=== PATIENT | male | born 1970 | race Caucasian/White ===

== ENCOUNTER 2022-09-24 22:23 | Emergency (ER) | payer OTHER, SELFPAY ==
[2022-09-24 22:29] VITALS: BP 179/99; PULSE 84; RESP 18; TEMP 36.5; O2SAT 98
--- NOTE | 2022-09-25 00:17 | ED.EXTPRO ---
HPI - Extremity Problem General Chief complaint: Extremity Problem,Nontraumatic Stated complaint: left leg swelling distal to knee Time Seen by Provider: 09/25/22 00:16 Source: patient Mode of arrival: ambulatory Limitations: no limitations History of Present Illness HPI Narrative: Patient is a 51-year-old male presenting to the emergency department for evaluation of left lower extremity swelling and calf tightness. Patient reports symptoms have been ongoing over the past 3 weeks. Patient with recent long car trip to [place], [place], greater than a 14-hour drive. Patient states that he is active, would get out and stretch his legs. No history of coagulopathy, DVT or PE in the past. No use of anticoagulation. He reports chronic left lower extremity leg tightness and swelling without redness, rash, bruising, lesion. He denies any chest pain, shortness of breath, pleuritic pain, palpitations, cough or hemoptysis. Related Data Allergies Allergy/AdvReac Type Severity Reaction Status Date / Time No Known Drug Allergies Allergy Unknown Unknown Verified 09/24/22 22:24 Review of Systems Review of Systems: CONSTITUTIONAL: Denies fever, chills, or sweats. EYES: Denies visual changes, redness, or discharge. ENT: Denies rhinorrhea, congestion, sore throat, or otalgia. CARDIOVASCULAR: Denies chest pain, palpitations, reports left leg edema RESPIRATORY: Denies cough or dyspnea. GASTROINTESTINAL: Denies abdominal pain, nausea, vomiting, or diarrhea. GENITOURINARY: Denies dysuria or hematuria. SKIN: Denies rash or itching. MUSCULOSKELETAL: Denies back pain, joint pain, or myalgia. NEUROLOGIC: Denies headache, numbness, or weakness. [facility] Family History Family History Mother Heart disease Father Cerebrovascular accident, Onset Age: 61 Social History Social History Smoking status: Never smoker Alcohol intake: current Lack of Transportation: YES Lack of Food: Never True Current Housing: I Have Housing Concerned About Future Housing: No Difficulty Paying Gas/Electric Bills: No Difficulty Paying for Meds: No Currently Unemployed: No Education: Bachelor's Degree Difficulty w/ Childcare or Family Care: No Exam Narrative: GENERAL: Awake, alert, conversant HEAD: Normocephalic, atraumatic. EYES: PERRLA and EOMI. ENT: Nares clear, no rhinorrhea or epistaxis. Mucous membranes moist. NECK: Supple. CHEST: No respiratory distress, breathing even and non labored HEART: Regular rate, sinus rhythm ABDOMEN: Obese, protuberant, non tender EXTREMITIES: Normal range of motion. Left lower extremity edema compared to the right, mild tenderness but compartments are overall soft. There is no erythema, induration, blistering, vesicles, lesion. Extremities are warm and well-perfused, capillary refill is normal. Intact distal sensation, normal strength bilaterally. SKIN: Warm, dry, no rash. NEURO:No focal deficits. Alert and oriented x3 Course Vital Signs Vital signs: Vital Signs Temperature 36.5 C 09/24/22 22:29 Pulse Rate 84 09/24/22 22:29 Respiratory Rate 18 09/24/22 22:29 Blood Pressure 179/99 H 09/24/22 22:29 Pulse Oximetry 98 09/24/22 22:29 Oxygen Delivery Room Air 09/24/22 22:29 Temperature 36.5 C 09/24/22 22:29 Pulse Rate 84 09/24/22 22:29 Respiratory Rate 18 09/24/22 22:29 Blood Pressure 179/99 H 09/24/22 22:29 Pulse Oximetry 98 09/24/22 22:29 Oxygen Delivery Room Air 09/24/22 22:29 MDM - Extremity (Nontraumatic) MDM Narrative Medical decision making narrative: Patient without leukocytosis, no electrolyte derangement. Mildly elevated D-dimer, thus after shared decision-making occurred, did do first dose of Eliquis here in the emergency department tonight. Patient is not a good candidate for Lovenox given his BMI, weight in kilograms.
[2022-09-25 00:51] LABS: Basophils Absolute Auto 0.1 K/mm3 (0.0-0.1); Basophils Percent Auto 1.1 % (0.2-1.2); Eosinophils Absolute Auto 0.2 K/mm3 (0-0.3); Eosinophils Percent Auto 3.6 % (0-4.4); Hemoglobin 14.3 g/dL (14.0-18.0); Immature Granulocyte Absolute 0.02 K/mm3 (0.00-0.031); Immature Granulocyte Percent A 0.3 % (0-0.5); Lymphocytes Absolute Auto 1.75 K/mm3 (0.9-3.2); Lymphocytes Percent Auto 26.6 % (18.3-44.2); Mean Corpuscular HGB Conc 31.8 g/dl (32-36); Mean Corpuscular Hemoglobin 27.5 pg (26-34); Mean Corpuscular Volume 86.5 fl (80-100); Mean Platelet Volume 9.7 fl (7.4-10.4); Monocytes Absolute Auto 0.5 K/mm3 (0.1-0.6); Monocytes Percent Auto 7.3 % (2.6-8.5); Neutrophils Percent Auto 61.1 % (45.5-73.1); Platelet Count Result 241 k/mm3 (150-375); Red Cell Distribution Width 15.1 % (11.5-14.5); White Blood Count 6.6 K/mm3 (4.5-10.0)
[2022-09-25 00:55] VITALS: BP 130/87; PULSE 87; RESP 19; O2SAT 97
[2022-09-25 01:01] LABS: Anion Gap 5 mmol/L (8-16); Blood Urea Nitrogen 20 mg/dL (9-20); Calcium 8.5 mg/dL (8.4-10.2); Carbon Dioxide 31 mmol/L (22-30); Chloride 104 mmol/L (98-107); Estimated CRCL calculation 137 ml/min; Estimated Glomerular Filt Rate > 60; Glucose 112 mg/dL (65-110); Potassium 3.8 mmol/L (3.4-5.0); Sodium 140 mmol/L (137-145)
[2022-09-25 01:02] LABS: Prothrombin Time 13.3 Seconds (11.1-14.7)
[2022-09-25 01:03] LABS: Partial Thromboplastin Time 31.2 SECONDS (22.3-36.8)
[2022-09-25 01:08] LABS: D Dimer 0.52 ug/mL (<0.48)
[2022-09-25] MEDS: APIXABAN 5 MG TABLET PO (01:38)
== END 2022-09-25 01:30 | disposition home or self-care (01) ==
PROVIDERS: Emergency Provider Emergency Medicine; PCP Internal Medicine
DX: R60.0 Localized edema (principal)
CPT/HCPCS: 36415; 80048; 85025; 85380; 85610; 85730; 93971; 99283; A9270

== ENCOUNTER 2022-09-25 07:15 | Outpatient (CLI) | payer OTHER, SELFPAY ==
--- NOTE | ~2022-09-25 | US_ITS ---
EXAMINATION: US venous doppler [facility] DATE: 09/25/2022 07:52 INDICATION: Left lower limb edema. TECHNIQUE: Grayscale ultrasound images without and with compression and Doppler ultrasound images of the left lower extremity veins were obtained. COMPARISON: None. FINDINGS: The visualized portions of left common femoral vein, profunda (deep) femoral vein, femoral vein, popl iteal vein, peroneal veins, posterior tibial veins, and greater saphenous vein outflow are patent. IMPRESSION: 1. No deep venous thrombosis. Reviewed, dictated and finalized at location A.
== END 2022-09-25 07:16 | disposition home or self-care (01) ==
PROVIDERS: PCP Internal Medicine; Visit Provider Emergency Medicine
DX: R60.0 Localized edema (principal)
CPT/HCPCS: 93971

== ENCOUNTER 2023-06-11 15:36 | Outpatient (CLI) | payer OTHER, SELFPAY ==
--- NOTE | ~2023-06-11 | CT_ITS ---
EXAMINATION: CT sinus wo con DATE: 06/11/2023 15:51 INDICATION: Chronic sinusitis, unspecified. TECHNIQUE: Computed tomography (CT) of the paranasal sinuses was performed without intravenous contra st. Iterative reconstruction technique was employed. The dose-length product was 311.14 mGy-cm. COMPARISON: CT sinuses 05/23/16 FINDINGS: There is mucosal thickening in the frontal sinuses with occlusion of the frontal recesses. There is extensive mucosal thickening in the ethmoid sinuses. There is mild mucosal thickening in the sphenoid and maxillary sinuses. There is mild rightward deviation of superior nasal septum and mild leftward deviation of inferior nasal septum. There are changes of uncinectomies. The ostiomeatal unit s are widely patent. IMPRESSION: 1. Mucosal thickening in the paranasal sinuses. Reviewed, dictated and finalized at location E. CLEANER
== END 2023-06-11 15:37 | disposition home or self-care (01) ==
LOC: ANHIMG 15:39
PROVIDERS: PCP Internal Medicine; Visit Provider Otolaryngology
DX: J32.9 Chronic sinusitis, unspecified (principal); J34.2 Deviated nasal septum; J34.3 Hypertrophy of nasal turbinates; R09.81 Nasal congestion
CPT/HCPCS: 70486

== ENCOUNTER 2023-08-05 01:52 | Day surgery (SDC) | payer OTHER, SELFPAY ==
[2023-07-28 13:05] VITALS: BMI 50.8
--- NOTE | 2023-07-28 13:10 | PC.NURSE ---
Report to the Outpatient Waiting Room, entrance under the green pavilion located off [facility], at time 0645 on date 08/05/23. Planned Procedure Time: 0845. Time changes happen often and if your time is changed the preop area will call you the afternoon before. - You and your visitor will be asked to self-screen and do not enter if you have any COVID symptoms. - A mask is optional within the hospital at this time. Patients may have clear liquids (water, carbonated beverages, clear teas, apple juice) until 3 hours prior to surgery with a maximum of 20 ounces. - No food from midnight until time of surgery Take the following medications with a SIP of water the morning of surgery: NONE DO NOT STOP ANY OF YOUR OTHER PRESCRIPTION MEDICATIONS PRIOR TO SURGERY ?EXCEPT THE FOLLOWING Medications to discontinue per physician: N/A Date to take last dose: N/A Please no make-up, nail irish, hairspray, perfume, deodorant, or body powder the day of surgery. No jewelry (including any body piercings) or valuables the day of surgery, leave them at home. Please take a shower or bath the night before, or the morning of, surgery with an antibacterial soap. Wear comfortable, loose fitting clothing. Children are encouraged to wear pajamas. - Jewelry must be removed prior to entering the operating room. Rings and piercings that are not removed may be cut off. - The hospital will not accept responsibility for valuables. - Please leave all valuables, including medications, at home the day of surgery. If you are going home after surgery, a licensed customer service driver must drive you home. - NO public transportation without another adult if you receive anesthesia. - We recommend that an adult stay with you for 24 hours following discharge. - We also recommend that you do not drive, make important decision, drink alcoholic beverages, or take any drugs that were not prescribed by your health care provider for at least 24 hours after your discharge time. Follow any additional instructions given to you from your surgeon. If you or anyone in your household have experienced Covid symptoms in the past week, please notify your surgeon or the nurse liaison at the phone number below for possible testing. Telephone instructions given to EMERSON GLASER and asked if any additional questions and then verbalized understanding. Patient advised to call surgeon office or pre surgery nurse liaison [phone] if any additional questions.
--- NOTE | 2023-08-04 15:23 | PM.IMHP ---
H&P: HPI History of Present Illness Date/Time: 08/04/23 15:23 Chief Complaint: chronic sinusitis nasal obstruction nasal congestion septal deviation turbinate hypertrophy Narrative: planned procedure [facility] Family History Family History Mother Heart disease Father Cerebrovascular accident, Onset Age: 61 Social History Social History Social History: Caffeine-energy drinks occasionally Smoking status: Never smoker Alcohol intake: current Alcohol use details: 2/MONTH Substance use: never Substance use type: does not use Lack of Transportation: YES Lack of Food: Never True Current Housing: I Have Housing Concerned About Future Housing: No Difficulty Paying Gas/Electric Bills: No Difficulty Paying for Meds: No Currently Unemployed: No Education: Bachelor's Degree Difficulty w/ Childcare or Family Care: No Living arrangements: with family Spiritual care concerns: No Meds Home Medications and Allergies Home Medications Medication Instructions Recorded Confirmed Type multivitamin 1 tablet PO DAILY 01/13/23 07/28/23 History azelastine 137 mcg (0.1 %) nasal 1 - 2 spray intranasal Q12H #30 mL 05/01/23 07/28/23 Rx spray aerosol fluticasone propionate 50 2 - 3 spray intranasal BID #48 mL 05/02/23 07/28/23 Rx mcg/actuation nasal spray,suspension (Flonase Allergy Relief) prednisone 10 mg tablet 10 mg PO .daily #5 tabs 07/30/23 07/30/23 Rx Allergies Allergy/AdvReac Type Severity Reaction Status Date / Time Penicillins AdvReac Vomiting Verified 07/28/23 13:04 Exam Narrative: Septal deviation back turbinates chronic appearing sinuses Assessment and Plan Assessment and plan (1) Nasal turbinate hypertrophy: Code(s): J34.3 - Hypertrophy of nasal turbinates Status: Acute Assessment and Plan: OR bilateral image guided endoscopic septoplasty turbinate reduction maxillary antrostomies total ethmoidectomies sphenoidotomies frontal sinusotomies . Risks discussed bleeding infection damage to surrounding structures need further procedures septal perforation failure to resolve symptoms. Need for prolonged follow-up high risk for narcotic use. Time off work time off school. Postoperative bleeding. Failure to resolve symptoms. CSF leak brain brain damage change in vision total blindness. Damage any structures the clavicle by myself damage to any structure in the induction and maintenance of anesthesia. (2) Nasal septal deviation: Code(s): J34.2 - Deviated nasal septum Status: Acute (3) Chronic sinusitis: Code(s): J32.9 - Chronic sinusitis, unspecified Status: Acute
[2023-08-05] VITALS (13 sets, daily range): BP systolic 128–155; BP diastolic 74–97; PULSE 74–99; RESP 16–25; TEMP 36.2–36.8; O2SAT 94–99; BMI 51.0
--- NOTE | 2023-08-05 07:15 | WPDHPUPDATE1 ---
History and Physical Update Update Date/Time: 08/05/23 07:15 History and Physical has been reviewed, including an updated exam of the patient. There are NO changes in the patient's condition. Risks, benefits, and alternatives have been discussed and questions answered. Patient agrees to proceed with procedure.
[2023-08-05] MEDS: ACETAMINOPHEN 500 MG TABLET 1000 MG PO (07:33)
--- NOTE | 2023-08-05 08:01 | P.PNAN_ITS ---
Anes - Initial Pre Proc Eval Procedure: Operation Date: 08/05/23 08:45 Proposed Procedures p Endoscopic Septoplasty, - Henry Mario MD s Image Guided Bilateral Inferior Turbinate Reduction with Outfracture, Bilateral Maxillary Antrostomy, Bilateral Total Ethmoidectomy, Bilateral Sphenoidotomy, Bilateral Frontal Sinusotomy - Henry Mario MD Date/Time: 08/05/23 08:01 Surgeon: Henry Mario MD Pre Op Diagnosis: chronic sinusitis,septal deviation Patient Data Age: 52 Gender: M Height: 1.83 m Weight: 170.6 kg Last Vital Signs Temp 36.8 C 08/05/23 07:40 Pulse 80 08/05/23 07:40 Resp 20 08/05/23 07:40 BP 153/97 H 08/05/23 07:40 Pulse Ox 97 08/05/23 07:40 O2 Del Method Room Air 08/05/23 07:40 Allergies Allergy/AdvReac Type Severity Reaction Status Date / Time Penicillins AdvReac Vomiting Verified 08/05/23 07:46 Home Medications Medication Instructions Recorded Confirmed Type multivitamin 1 tablet PO DAILY 01/13/23 08/05/23 History azelastine 137 mcg (0.1 %) nasal 1 - 2 spray intranasal Q12H #30 mL 05/01/23 07/28/23 Rx spray aerosol fluticasone propionate 50 2 - 3 spray intranasal BID #48 mL 05/02/23 07/28/23 Rx mcg/actuation nasal spray,suspension (Flonase Allergy Relief) Patient hx anesthesia problems: none Family hx anesthesia problems: none Results Review: All pre-operative results and documents have been reviewed as part of the pre- operative evaluation. [facility] Family History Family History Mother Heart disease Father Cerebrovascular accident, Onset Age: 61 Social History Social History Social History: Caffeine-energy drinks occasionally Smoking status: Never smoker Alcohol intake: current Alcohol use details: 2/MONTH Substance use: never Substance use type: does not use Lack of Transportation: YES Lack of Food: Never True Current Housing: I Have Housing Concerned About Future Housing: No Difficulty Paying Gas/Electric Bills: No Difficulty Paying for Meds: No Currently Unemployed: No Education: Bachelor's Degree Difficulty w/ Childcare or Family Care: No Living arrangements: with family Spiritual care concerns: No Anes - Eval Final PreProcedure Day of Procedure 08/05/23 08:01 Patient weight: super morbidly obese Heart: regular rate and rhythm Lungs: decreased breath sounds Airway: Mallampati scale class II Neurological: alert and oriented Last oral intake: >/= 8 hours ASA classification: III Emergent: no Anesthetic plan: proceed Anesthesia type and monitoring: general ETT and standard monitoring Results Review: All pre-operative results and documents have been reviewed as part of the pre- operative evaluation. Informed Consent: The patient's anesthetic plan and its attendant risks and benefits were discussed with the patient/family/POA. Questions were solicited and answers provided to the satisfaction of the patient/family/POA.
[2023-08-05] MEDS: LACTATED RINGERS 1,000 ML 30 ML IV CONT ×2 (08:34→13:30)
[2023-08-05] MEDS: ceFAZolin 3 GM/D5W 100 ML 100 ML IVPB (08:36)
[2023-08-05] MEDS: OXYMETAZOLINE HCL 0.05% NAS 15 ML BTL (*BKC) 1 SPRAY NASAL (09:01)
[2023-08-05] MEDS: LIDO 1%/EPINEPHRINE 1:100,000 20 ML VIAL 10 ML INFILTRATE (09:06)
[2023-08-05] MEDS: MUPIROCIN 2% OINT 22 GM TUBE 1 APPLIC EACH NARE (09:07)
[2023-08-05] MEDS: ceFAZolin SODIUM 1 GM VIAL IV PUSH (12:31)
--- NOTE | 2023-08-05 13:48 | W.PM.PROC2 ---
Procedure Note - Detailed Date of Procedure 08/05/23 Pre-op Diagnosis chronic sinusitis,septal deviationNasal polyps, turbinate hypertrophy Post-op Diagnosis Same Procedure Performed bilateral image guided endoscopic maxillary antrostomies total ethmoidectomies sphenoidotomies frontal sinusotomies with drill out. Propel stent placement. Bilateral middle turbinectomies. Endoscopic assisted septoplasty. Surgeon Henry Mario MD Anesthesia General Indications See above Findings rightward deviated septum blocking the frontal with down low it is deviated as well. History of previous septoplasty. Edematous polyps both middle turbinates scarring over laterally frontal outflows ethmoid cavities full of polyps. Sphenoids full of polyps. Max is were incomplete. Turbinates were big patient bled throughout the case probably 200 cc compared to in 100 cc for a full house test which. Epi the patient did well left frontal open nicely propel stent placed right-sided was had complete in terms of frontal sinusotomy draft 1 but he could used draft 2 were tube being out just unable because of constant oozing. Description of Procedure Patient identified consent verified preop. Patient brought to the operating. Time-out performed. General anesthesia induced endotracheal tube secured. Patient prepped draped position procedure confirmed 2nd time-out performed. Image guidance initiated firm. I suppose lysed Kyrgyz then removed. 0 degree scope utilized right septal deviation total 15 cc 1% lidocaine 1 100,000 parts epinephrine checked bilateral nasal septum inferior turbinates. [place] incision made left nasal septal flap elevated no tears right nasal septal flap elevated no tears previous he says it scarred down from previous septoplasty. Deviated septum removed Ernst Sevillaton forceps Nain forceps osteotome. FloSeal placed along any bleeding areas in the flaps this stopped any bleeding. Piotr incision closed interrupted 5 0 fast gut sutures. Turbinates inferior stab incision made anteriorly debrided with a Personal Estate Manager microdebrider 2.5 blade outfractured with [place] FloSeal placed in the stab incision no bleeding. Maxillary antrostomies performed with image guidance straight through cut double ball probe backbiter and microdebrider. Total ethmoidectomy performed with [place] up-biting through cut straight through cut image guidance and microdebrider. Sphenoidotomy performed with [place] Kerrison sphenoid punch and microdebrider. Frontal sinusotomies performed with image guidance frontal sinus instruments and a 70 degree high-speed drill on the left side and the right side a little bit. I was unable to completely open the floor the right side that being said it was open. Because of the constant oozing. Propel stents placed bilaterally. Franks splints placed was were copiously irrigated with sterile in a sterile normal saline. Gelfoam placed in the bilateral middle meati I to catch any bleeding. Franks splints sutured anteriorly with 3-0 mattress nylon suture. Patient tolerated the procedure well blood loss 200 cc. I performed all dictated portions of procedure no complications care the patient given Anesthesiology patient taken to PACU. All of note the middle turbinates were noted be completely full of polyps and scarred over laterally so local was injected in the base of these and they were resected stumps were cauterized with Bovie suction electrocautery setting of 10. Estimated Blood Loss 200 Drains No Packing Yes ( Nova pack) Pathology None sent Complications No immediate complications Condition Stable Disposition PACU [facility] Billing Surgery - Charge Forward: Surgery Billing
[2023-08-05] MEDS: ONDANSETRON INJ 4 MG/2 ML VIAL IV PUSH (15:03)
[2023-08-05] MEDS: oxyCODONE HCL (*CRX) 5 MG TAB IR PO (15:18)
--- NOTE | 2023-08-05 17:28 | SUR.PHASEII ---
Dr. Mario at bedside to speak to patient and his regarding questions and concerns.
== END 2023-08-05 17:50 | disposition home or self-care (01) ==
PROVIDERS: PCP Internal Medicine; Visit Provider Otolaryngology
PROC: (CPT 30520; principal; 2023-08-05 08:45)
PROC: (CPT 31256; 2023-08-05 08:45)
DX: J34.2 Deviated nasal septum (principal); J32.9 Chronic sinusitis, unspecified; J33.9 Nasal polyp, unspecified; J34.3 Hypertrophy of nasal turbinates; E66.01 Morbid (severe) obesity due to excess calories; Z68.43 Body mass index [BMI] 50.0-59.9, adult; Z82.49 Family history of ischemic heart disease and other diseases of the circulatory system
CPT/HCPCS: 31256; 31257; 31276; 61782; 30520; A9270; C2625; J0330; J0360; J0690; J1100; J2250; J2405; J2704; J3010; J7120

== ENCOUNTER 2023-10-02 12:36 | Outpatient (CLI) | payer OTHER, SELFPAY ==
--- NOTE | 2023-10-02 12:30 | ECG_ITS ---
[facility] [address] Test Date: 2023-10-02 Pat Name: Lorelei Perla Department: Room: Gender: M Extrusion Manager: : 1970 Requested By: Abhinav Lockhart Order Number: [id number] Karon MD: Daniel Blanchard D.O. Measurements Intervals [place] Rate: 82 P: 24 GA: 148 QRS: 24 QRSD: 101 T: 14 QT: 364 QTc: 426 Interpretive Statements SINUS RHYTHM CONSIDER INFERIOR INFARCT, AGE INDETERMINATE BASELINE ARTIFACT- I, II, III, AVR, AVL, AVF, V1-V6 ABNORMAL ECG No previous ECG available for comparison Electronically Signed On 10-02-2023 13:01:14 CDT by Daniel Blanchard D.O.
== END 2023-10-02 12:37 | disposition home or self-care (01) ==
LOC: ANHSURGERY 12:40
PROVIDERS: PCP Internal Medicine; Visit Provider Otolaryngology
DX: Z01.818 Encounter for other preprocedural examination (principal); I10 Essential (primary) hypertension; R94.31 Abnormal electrocardiogram [ECG] [EKG]
CPT/HCPCS: 93005

== ENCOUNTER 2023-10-10 01:29 | Day surgery (SDC) | payer OTHER, SELFPAY ==
[2023-10-01 09:36] VITALS: BMI 49.6
--- NOTE | 2023-10-01 09:41 | PC.NURSE ---
Report to the Outpatient Waiting Room, entrance under the green pavilion located off [facility], at time _1100_ on date _[id number]_. Planned Procedure Time: _1pm_. Time changes happen often and if your time is changed the preop area will call you the afternoon before. - You and your visitor will be asked to self-screen and do not enter if you have any COVID symptoms. - A mask is optional within the hospital at this time. Patients may have clear liquids (water, carbonated beverages, clear teas, apple juice) until 3 hours prior to surgery with a maximum of 20 ounces. - No food from midnight until time of surgery Take the following medications with a SIP of water the morning of surgery: ___Amlodipine and Metoprolol. Nebulizer if needed. DO NOT STOP ANY OF YOUR OTHER PRESCRIPTION MEDICATIONS PRIOR TO SURGERY ?EXCEPT THE FOLLOWING Medications to discontinue per physician Multivitamin Date to take last jwig___[id number] Please no make-up, nail icelandic, hairspray, perfume, deodorant, or body powder the day of surgery. No jewelry (including any body piercings) or valuables the day of surgery, leave them at home. Please take a shower or bath the night before, or the morning of, surgery with an antibacterial soap. Wear comfortable, loose fitting clothing. - Jewelry must be removed prior to entering the operating room. Rings and piercings that are not removed may be cut off. - The hospital will not accept responsibility for valuables. - Please leave all valuables, including medications, at home the day of surgery. If you are going home after surgery, a licensed truck driver salesperson must drive you home. - NO public transportation without another adult if you receive anesthesia. - We recommend that an adult stay with you for 24 hours following discharge. - We also recommend that you do not drive, make important decision, drink alcoholic beverages, or take any drugs that were not prescribed by your health care provider for at least 24 hours after your discharge time. Follow any additional instructions given to you from your surgeon. If you or anyone in your household have experienced Covid symptoms in the past week, please notify your surgeon or the nurse liaison at the phone number below for possible testing. Telephone instructions given to __Malie__and asked if any additional questions and then verbalized understanding. Patient advised to call surgeon office or pre surgery nurse liaison [phone] if any additional questions.
--- NOTE | 2023-10-09 17:10 | PM.IMHP ---
H&P: HPI History of Present Illness Date/Time: 10/09/23 17:10 Chief Complaint: right supraclavicular lipoma tonsillar hypertrophy snoring sleep apnea Narrative: planned procedure Review of Systems Review of Systems: All systems reviewed & are unremarkable except as noted in HPI and below PMFSH Family History Family History Mother Heart disease Father Cerebrovascular accident, Onset Age: 61 Social History Social History Social History: Caffeine-energy drinks occasionally Smoking status: Never smoker Alcohol intake: current Alcohol use details: 2/MONTH Substance use: never Substance use type: does not use Lack of Transportation: YES Lack of Food: Never True Current Housing: I Have Housing Concerned About Future Housing: No Difficulty Paying Gas/Electric Bills: No Difficulty Paying for Meds: No Currently Unemployed: No Education: Bachelor's Degree Difficulty w/ Childcare or Family Care: No Living arrangements: with family Spiritual care concerns: No Meds Home Medications and Allergies Home Medications Medication Instructions Recorded Confirmed Type multivitamin 1 tablet PO DAILY 01/13/23 10/01/23 History amlodipine 5 mg tablet 5 mg PO DAILY 08/11/23 10/01/23 History metoprolol succinate 50 mg 50 mg PO DAILY 08/28/23 10/01/23 History tablet,extended release 24 hr clindamycin HCl 300 mg capsule 300 mg PO Q8H #21 caps 09/26/23 10/01/23 Rx budesonide 0.25 mg/2 mL suspension 0.25 mg (2 mL) irrigation BID PRN 10/01/23 Rx for nebulization Dyspnea #360 mL Allergies Allergy/AdvReac Type Severity Reaction Status Date / Time Penicillins AdvReac Vomiting Verified 10/01/23 09:35 Exam Narrative: large tonsils right supraclavicular mass Assessment and Plan Assessment and plan (1) Lipoma: Code(s): D17.9 - Benign lipomatous neoplasm, unspecified Status: Acute Assessment and Plan: 2 part procedure 1st will be excision of right supraclavicular mass /lipoma 2nd will be tonsillectomy. Risks discussed bleeding infection damage to surrounding structures paresis of brachial plexus or any nerves in the region of the right supraclavicular area. 3-5% chance of postoperative bleeding time off work time off school inherent risk of narcotic use need for further procedures routine follow-up need for drain placement drain removal damage any structures above the clavicle myself damage any structures induction and remains of anesthesia including vocal cord paralysis. (2) Tonsillar hypertrophy: Code(s): J35.1 - Hypertrophy of tonsils Status: Acute
[2023-10-10] VITALS (12 sets, daily range): BP systolic 136–166; BP diastolic 77–105; PULSE 77–82; RESP 14–18; TEMP 36.3–36.4; O2SAT 93–100; BMI 50.5
--- NOTE | 2023-10-10 07:21 | WPDHPUPDATE1 ---
History and Physical Update Update Date/Time: 10/10/23 07:21 History and Physical has been reviewed, including an updated exam of the patient. There are NO changes in the patient's condition. Risks, benefits, and alternatives have been discussed and questions answered. Patient agrees to proceed with procedure.
[2023-10-10] MEDS: ACETAMINOPHEN 500 MG TABLET 1000 MG PO (09:25)
--- NOTE | 2023-10-10 09:41 | P.PNAN_ITS ---
Anes - Initial Pre Proc Eval Procedure: Operation Date: 10/10/23 11:45 Proposed Procedures p Tonsillectomy, - Henry Mario MD s Excision of Right Neck Lipoma - Henry Mario MD Date/Time: 10/10/23 09:41 Surgeon: Henry Mario MD Pre Op Diagnosis: neck lipoma, recurrent tonsillitis Patient Data Age: 52 Gender: M Height: 1.83 m Weight: 169 kg Last Vital Signs Temp 36.4 C 10/10/23 09:33 Pulse 81 10/10/23 09:33 Resp 16 10/10/23 09:33 BP 165/88 H 10/10/23 09:33 Pulse Ox 97 10/10/23 09:33 O2 Del Method Room Air 10/10/23 09:33 Allergies Allergy/AdvReac Type Severity Reaction Status Date / Time Penicillins AdvReac Vomiting Verified 10/01/23 09:35 Home Medications Medication Instructions Recorded Confirmed Type multivitamin 1 tablet PO DAILY 01/13/23 10/01/23 History amlodipine 5 mg tablet 5 mg PO DAILY 08/11/23 10/01/23 History metoprolol succinate 50 mg 50 mg PO DAILY 08/28/23 10/01/23 History tablet,extended release 24 hr clindamycin HCl 300 mg capsule 300 mg PO Q8H #21 caps 09/26/23 10/01/23 Rx budesonide 0.25 mg/2 mL suspension 0.25 mg (2 mL) irrigation BID PRN 10/01/23 Rx for nebulization Dyspnea #360 mL Patient hx anesthesia problems: none Family hx anesthesia problems: none Results Review: All pre-operative results and documents have been reviewed as part of the pre-operative evaluation. [facility] Family History Family History Mother Heart disease Father Cerebrovascular accident, Onset Age: 61 Social History Social History Social History: Caffeine-energy drinks occasionally Smoking status: Never smoker Alcohol intake: current Alcohol use details: 2/MONTH Substance use: never Substance use type: does not use Lack of Transportation: YES Lack of Food: Never True Current Housing: I Have Housing Concerned About Future Housing: No Difficulty Paying Gas/Electric Bills: No Difficulty Paying for Meds: No Currently Unemployed: No Education: Bachelor's Degree Difficulty w/ Childcare or Family Care: No Living arrangements: with family Spiritual care concerns: No Anes - Eval Final PreProcedure Day of Procedure 10/10/23 09:41 Patient weight: super morbidly obese Heart: regular rate and rhythm Lungs: clear to auscultation Airway: Mallampati scale class II Neurological: alert and oriented Last oral intake: >/= 8 hours ASA classification: III Emergent: no Anesthetic plan: proceed Anesthesia type and monitoring: general ETT and standard monitoring Results Review: All pre-operative results and documents have been reviewed as part of the pre- operative evaluation. Informed Consent: The patient's anesthetic plan and its attendant risks and benefits were discussed with the patient/family/POA. Questions were solicited and answers provided to the satisfaction of the patient/family/POA.
[2023-10-10] MEDS: ceFAZolin 3 GM/D5W 100 ML 100 ML IVPB (10:49)
[2023-10-10] MEDS: LACTATED RINGERS 1,000 ML 30 ML IV CONT ×2 (10:53→13:41)
[2023-10-10] MEDS: LIDO 1%/EPINEPHRINE 1:100,000 50 ML VIAL INFILTRATE (11:13)
[2023-10-10] MEDS: fentaNYL CITRATE INJ (*CRX) 100 MCG/2 ML VIAL 25 MCG IV PUSH ×8 (13:54→14:39)
--- NOTE | 2023-10-10 14:39 | P.OP_ITS ---
Procedure Note - Detailed Date of Procedure 10/10/23 Pre-op Diagnosis neck lipoma, recurrent tonsillitis Post-op Diagnosis Same Procedure Performed Excision right supraclavicular neck mass, tonsillectomy Surgeon Henry Mario MD Anesthesia General Indications see above Findings lipoma removed almost in entirety about 85-95% unable to remove the deep portion because of its proximity to the thyrocervical trunk and nerves tonsils removed scarred in minimal bleeding from this procedure patient bled moderately following no active bleeding and PACU Lipoma measured about 8 cm removed portion Description of Procedure patient identified consent verified preop. Patient was operating. Time-out performed. General anesthesia induced endotracheal tube secured. Patient prepped draped positioned procedure confirmed 2nd time-out performed. Right submucous a clear area marked draped in sterile fashion a total of 5 cc 1% lidocaine 1 100,000 parts epinephrine checked her pre drawn surgical incision about 6 cm 7 cm in length Bovie 15 blade utilized to go through the dermis and epidermis. Bovie electrocautery lysed get down to the musculature this was dissected very thin over the lipoma lipoma dissected circumferentially until the thyrocervical trunk was reached deep tissue appearing to be nerves as well. Scant lipoma was left on the thyrocervical trunk other venous structures and nerves large portion removed. Minimal bleeding. Any bleeding controlled bipolar cautery. Wound copiously irrigated out. Fashion deep structures closed with interrupted Vicryl 3-0 sutures. Skin approximated well with Vicryl sutures skin closed with glue. Drain placed prior to closure drain was sutured in with a 3-0 nylon suture. Bed rotated McIvor mouth gag placed very tiny oral opening. Tonsils removed bilaterally extracapsular plane using Bovie electrocautery setting of 10. Any bleeding controlled bipolar electrocautery setting 10 Bovie electrocautery setting of suction Bovie electrocautery setting of 10. In- between tonsils McIvor loud mouth gag lowered allow blood flow to return to the tongue. After tonsils were out McIvor mouth gag lowered reopened 30 seconds later reveal no further bleeding. Total blood loss throughout the whole procedure less than 5 cc. I performed all dictated portions procedure there were no complications other than the patient was awakening from anesthesia he blocked there was slight bleeding afterwards the bleeding quickly slow down. Patient was checked in PACU with no active bleeding. I performed all dictated portions of procedure no complications care the patient given Anesthesiology patient was to PACU. Estimated Blood Loss 5 Drains Yes Packing No Pathology Yes Complications No immediate complications Condition Stable Disposition PACU [facility] Billing Surgery - Charge Forward: Surgery Billing
[2023-10-10] MEDS: oxyCODONE (*CRX) 5 MG/5 ML ORAL SOLN IR PO (15:30)
== END 2023-10-10 16:28 | disposition home or self-care (01) ==
PROVIDERS: PCP Internal Medicine; Visit Provider Otolaryngology
PROC: (CPT 42826; principal; 2023-10-10 11:45)
PROC: (CPT 42826; 2023-10-10 11:45)
DX: D17.0 Benign lipomatous neoplasm of skin and subcutaneous tissue of head, face and neck (principal); J35.01 Chronic tonsillitis; Z79.51 Long term (current) use of inhaled steroids; E66.01 Morbid (severe) obesity due to excess calories; Z68.43 Body mass index [BMI] 50.0-59.9, adult
CPT/HCPCS: 42826; 21554; 88302; 88304; 93005; A9270; J0330; J0690; J1100; J1170; J2250; J2371; J2405; J2704; J3010; J7120